=== PATIENT | male | born 2000 | race Caucasian/White ===

== ENCOUNTER → 2022-03-07 | Outpatient (CLI) | payer BC ==
--- NOTE | 2022-03-07 16:51 | Diagnostic Imaging Report ---
PROCEDURE: US Scrotum w/ Duplex. TECHNIQUE: Multiple real-time ng images were obtained of the scrotum in various projections bilaterally. Color Doppler images were also obtained. INDICATION: Right testicular mass. COMPARISON: None. FINDINGS: The testicles are normal in size, shape and echogenicity. The right testis measures 4.0 x 2.2 x 2.9 cm. The left testis measures 4.6 x 2.0 x 2.9 cm. There is normal color flow Doppler signal of both testicles. No focal testicular mass is seen on either side. There is a heterogeneous appearance with increased vascularity in the right epididymis. The left epididymis is unremarkable. IMPRESSION: 1. Findings suggestive of right-sided epididymitis. No evidence of abscess. 2. Unremarkable sonographic appearance of the testicles. Dictated by: Dictated on workstation # [id number]
== END ==
LOC: RAD 12:00
PROVIDERS: ATTEND Nurse Practitioner Family
DX: N50.89 Other specified disorders of the male genital organs (principal)
CPT/HCPCS: 76870